=== PATIENT | female | born 1995 | race Caucasian/White ===

== ENCOUNTER 2021-03-17 15:19 | Inpatient (IN) ==
[2021-03-17 13:17] LABS: Protein/Creatinine Ratio,Urine 2.42 mg/mg (0.00-0.20)
[2021-03-17 13:21] LABS: Basophils # 0.1 K/mcL (0.0-0.2); Basophils % 0.4 %; Eosinophils # 0.1 K/mcL (0.0-0.6); Eosinophils % 0.9 %; Hematocrit 36.8 % (35.3-44.9); Hemoglobin 11.5 g/dL (11.5-15.4); Immature Granulocytes % 0.5 % (0-4); Lymphocytes # 1.7 K/mcL (0.6-4.6); Lymphocytes % 14.8 %; Mean Corpuscular HGB Conc 31.3 g/dL (31.6-35.5); Mean Corpuscular Volume 83.1 fL (83.0-100.0); Mean Platelet Volume 12.3 fL (9.4-12.4); Monocytes # 1.1 K/mcL (0.0-1.3); Monocytes % 9.3 %; Neutrophils # 8.4 K/mcL (1.6-8.9); Platelet Count 279 K/mcL (140-400); Red Blood Count 4.43 M/mcL (3.82-4.97); Red Cell Distribution Width 18.2 % (11.5-14.5); Segmented Neutrophils % 74.1 %; White Blood Count 11.4 K/mcL (4.3-11.1)
[2021-03-17 13:31] LABS: Alanine Aminotransferase 12 Units/L (7-52); Aspartate Amino Transferase 21 Units/L (13-39); BUN/Creatinine Ratio 13 (6-26); Blood Urea Nitrogen 9 mg/dL (6-20); Lactate Dehydrogenase 174 Units/L (140-271); Uric Acid 8.2 mg/dL (2.3-7.6); eGFR For African Americans > 60 (> 60); eGFR For Non-African Americans > 60 (> 60)
[2021-03-17 14:49] LABS: Protein/Creatinine Ratio,Urine 2.09 mg/mg (0.00-0.20)
[~2021-03-17 15:19] MED LIST: *HR* Nalbuphine 10 MG/ML AMPUL IV PRN; Azithromycin 500 MG in 0.9 % Sodium Chloride 250 ML IVPB PRN; EPHEDrine 50 MG/ML VIAL IVP PRN; Famotidine 20 MG/2 ML VIAL IVP PRN; Lidocaine 1% 20 ML MDV INFILT PRN; Metoclopramide 10 MG/2 ML VIAL IVP PRN; Naloxone 0.4 MG/ML INJ IVP PRN; Ondansetron 4 MG/2 ML VIAL IVP PRN
[2021-03-17] MEDS ORDERED: miSOPROStoL 25 MCG TABLET PO PRN (15:22)
[2021-03-17] MEDS ORDERED: *HR* Labetalol 20 MG/4 ML SYRINGE IVP ONE (15:22)
[2021-03-17] MEDS ORDERED: Oxytocin 20 units/ LR 1000 mL 20 UNIT/1,000 ML BAG IVC ONE (20:21)
[2021-03-17] MEDS ORDERED: Oxytocin 20 units/ LR 1000 mL 20 UNIT/1,000 ML BAG IVC SCH (20:30)
[2021-03-17] MEDS: Ringers Solution, Lactated 1,000 ML IVC SCH ×2 (20:35→21:40)
[2021-03-17] MEDS: Epidural Premix (fent/bupiv) 110 ML EP SCH (21:47)
[2021-03-18] MEDS: Epidural Premix (fent/bupiv) 110 ML EP SCH (03:39)
[2021-03-18] MEDS ORDERED: Ropivacaine/PF 0.2% 20 ML VIAL ONE ×2 (05:34→16:14)
[2021-03-18] MEDS ORDERED: *HR* FentaNYL (PF) 100 MCG/2 ML VIAL ONE ×4 (14:08→21:28)
[2021-03-18] MEDS ORDERED: *HR* Labetalol 20 MG/4 ML SYRINGE IVP ONE ×2 (17:21→17:23)
[2021-03-18] MEDS ORDERED: Lidocaine -MPF 2% 5 ML VIAL ONE (21:21)
[2021-03-18] MEDS ORDERED: *HR* Succinylcholine 200 MG/10 ML VIAL IVP ONE (21:21)
[2021-03-18] MEDS ORDERED: *HR* Morphine Sulfate/PF 10 MG/10 ML AMPUL ONE (21:22)
[2021-03-18] MEDS ORDERED: *HR* FentaNYL (PF) 250 MCG/5 ML VIAL ONE (21:29)
[2021-03-18] MEDS ORDERED: Gentamicin 80 MG in 0.9 % Sodium Chloride 100 ML IVPB SCH (21:33)
[2021-03-18] MEDS ORDERED: Ondansetron 4 MG/2 ML VIAL ONE (21:37)
[2021-03-18] MEDS ORDERED: *HR* HYDROmorphone PF 0.5 MG/0.5 ML SYRINGE IVP PRN (21:43)
[2021-03-18] MEDS ORDERED: Ondansetron 4 MG/2 ML VIAL IVP PRN (21:43)
[2021-03-18] MEDS ORDERED: Gentamicin 80 MG in 0.9 % Sodium Chloride 100 ML IVPB ONE (22:11)
[2021-03-18] MEDS ORDERED: Acetaminophen IV 1,000 MG/100 ML BAG IVPB ONE (22:13)
[2021-03-19] MEDS ORDERED: Ringers Solution, Lactated 1,000 ML IVC SCH (00:13)
[2021-03-19] MEDS ORDERED: Oxytocin 20 units/ LR 1000 mL 20 UNIT/1,000 ML BAG IVC SCH ×2 (00:13)
[2021-03-19] MEDS ORDERED: Metoclopramide 10 MG/2 ML VIAL IVP PRN (00:13)
[2021-03-19] MEDS ORDERED: Ondansetron 4 MG/2 ML VIAL IVP PRN (00:13)
[2021-03-19] MEDS ORDERED: Rho Immune Globulin 1,500 UNIT SYRINGE IM ONE (00:13)
[2021-03-19] MEDS: Ibuprofen 600 MG TABLET PO SCH ×4 (01:09→23:35)
[2021-03-19 03:58] LABS: Basophils % 0.2 %; Eosinophils # 0.1 K/mcL (0.0-0.6); Eosinophils % 0.3 %; Hematocrit 32.3 % (35.3-44.9); Hemoglobin 10.1 g/dL (11.5-15.4); Immature Granulocytes % 0.7 % (0-4); Lymphocytes # 1.1 K/mcL (0.6-4.6); Lymphocytes % 4.7 %; Mean Corpuscular HGB Conc 31.3 g/dL (31.6-35.5); Mean Corpuscular Hemoglobin 26.4 pg (28.0-33.3); Mean Corpuscular Volume 84.6 fL (83.0-100.0); Mean Platelet Volume 11.5 fL (9.4-12.4); Monocytes % 4.5 %; Neutrophils # 20.7 K/mcL (1.6-8.9); Platelet Count 234 K/mcL (140-400); Red Blood Count 3.82 M/mcL (3.82-4.97); Red Cell Distribution Width 18.8 % (11.5-14.5); Segmented Neutrophils % 89.6 %
[2021-03-19 03:59] LABS: Basophils # 0.1 K/mcL (0.0-0.2); White Blood Count 23.1 K/mcL (4.3-11.1)
[2021-03-19] MEDS: Prenatal Vit/FA 1 EACH TABLET PO SCH (09:21)
[2021-03-19] MEDS: cephALEXin 500 MG CAPSULE PO SCH ×3 (09:21→20:08)
[2021-03-19] MEDS: Simethicone 80 MG TAB.CHEW PO PRN (09:22)
[2021-03-19] MEDS: metroNIDAZOLE 500 MG TABLET PO SCH ×3 (09:22→20:08)
[2021-03-19] MEDS: NIFEdipine XL (24 HR) 30 MG TAB.ER.24 PO SCH (09:22)
[2021-03-19] MEDS: *HR* HYDROcodone/Acet 5/325 mg TABLET PO PRN (20:08)
[2021-03-20] MEDS: Ibuprofen 600 MG TABLET PO SCH ×3 (04:44→21:56)
[2021-03-20] MEDS: *HR* HYDROcodone/Acet 5/325 mg TABLET PO PRN ×3 (04:44→15:29)
[2021-03-20 06:28] LABS: Basophils # 0.1 K/mcL (0.0-0.2); Basophils % 0.3 %; Eosinophils # 0.1 K/mcL (0.0-0.6); Hematocrit 31.1 % (35.3-44.9); Hemoglobin 9.4 g/dL (11.5-15.4); Immature Granulocytes % 0.9 % (0-4); Lymphocytes # 2.3 K/mcL (0.6-4.6); Lymphocytes % 15.8 %; Mean Corpuscular HGB Conc 30.2 g/dL (31.6-35.5); Mean Corpuscular Volume 85.9 fL (83.0-100.0); Mean Platelet Volume 11.7 fL (9.4-12.4); Monocytes # 1.3 K/mcL (0.0-1.3); Monocytes % 8.7 %; Neutrophils # 10.7 K/mcL (1.6-8.9); Platelet Count 227 K/mcL (140-400); Red Blood Count 3.62 M/mcL (3.82-4.97); Segmented Neutrophils % 73.3 %; White Blood Count 14.7 K/mcL (4.3-11.1)
[2021-03-20 07:22] LABS: Alanine Aminotransferase 16 Units/L (7-52); Aspartate Amino Transferase 40 Units/L (13-39); BUN/Creatinine Ratio 15 (6-26); Blood Urea Nitrogen 11 mg/dL (6-20); Lactate Dehydrogenase 292 Units/L (140-271); Uric Acid 9.1 mg/dL (2.3-7.6); eGFR For African Americans > 60 (> 60); eGFR For Non-African Americans > 60 (> 60)
[2021-03-20] MEDS: metroNIDAZOLE 500 MG TABLET PO SCH ×3 (07:42→21:56)
[2021-03-20] MEDS: cephALEXin 500 MG CAPSULE PO SCH ×3 (07:42→21:56)
[2021-03-20] MEDS: NIFEdipine XL (24 HR) 30 MG TAB.ER.24 PO SCH (07:42)
[2021-03-20] MEDS: Prenatal Vit/FA 1 EACH TABLET PO SCH (07:42)
[2021-03-21 03:37] VITALS: BP 139/86
[2021-03-21] MEDS: Simethicone 80 MG TAB.CHEW PO PRN ×2 (05:30→15:48)
[2021-03-21] MEDS: Ibuprofen 600 MG TABLET PO SCH ×2 (05:30→12:17)
[2021-03-21] MEDS: NIFEdipine XL (24 HR) 30 MG TAB.ER.24 PO SCH (08:55)
[2021-03-21] MEDS: *HR* HYDROcodone/Acet 5/325 mg TABLET PO PRN ×2 (12:17→15:47)
== END 2021-03-21 15:49 | disposition home or self-care (01) | DRG 788 ==
LOC: 1NENULAB → 1NENUOBS 03-19 00:10
PROVIDERS: ADMIT Obstetrics & Gynecology; ATTEND Obstetrics & Gynecology